=== PATIENT | female | born 1965 | race Caucasian/White ===

== ENCOUNTER → 2017-07-02 | Day surgery (SDC) | payer OTHER ==
[~2017-07-02] VITALS: Ht 149.9 cm; Wt 63.0 kg
[~2017-07-02] MED LIST: PROBIOTIC1 EACH PO; WOMEN'S DAILY1 EAC2 PO
--- NOTE | 2017-07-02 10:44 | Operative Report ---
Operative/Inv Procedure Report Surgery Date: 07/02/17 Name of Procedure: Release left carpal tunnel Pre-Operative Diagnosis: Carpal tunnel left Post-Operative Diagnosis: Same Estimated Blood Loss: scant Surgeon/Power Switchboard Operator: Akira Rojas MD Anesthesia: moderate sedation Operative/Procedure Note Note: She was counseled extensively regards the procedure the alternatives the risks and expected outcomes is related to request surgical intervention to treat symptomatic left-sided carpal tunnel syndrome. No guarantees were given regarding result. We discussed the risks including but not limited to infection pain bleeding numbness injury to the nerve possibly of a permanent nature. Patient signed informed consent. She was brought to the operative supine on the table with administration of intravenous antibiotics and sedation left hip was prepped and draped in usual sterile fashion. Tourniquet was placed on the proximal forearm. Palmar incision was made in the longitudinal location. It was deepened through the skin and subcutaneous tissue, fascia. The transverse carpal ligament was identified and direct vision and opened. No other pathology was seen in the tunnel. single-layer closure was carried out followed by splint
== END ==
LOC: STS 02:22
DX: G56.02 Carpal tunnel syndrome, left upper limb (principal)
CPT/HCPCS: J0690; J2250